=== PATIENT | female | born 1975 | race American Indian/Alaskan Native ===

== ENCOUNTER 2016-09-01 12:43 | Outpatient (CLI) | payer OTHER ==
--- NOTE | 2016-09-01 14:29 | Mammography Report ---
BILATERAL MAMMOGRAM: FINDINGS: The breasts are almost entirely fat (<25% glandular). No mass, distortion, suspicious calcification, or skin change is seen. There are no significant changes compared to her prior study in October 2014. CAD was utilized. IMPRESSION: Negative mammogram. There is no mammographic evidence of malignancy. RECOMMENDATION: Follow-up per ACS guidelines. BI-RADS CATEGORY: 1 = Negative ACR BI-RADS MAMMOGRAPHIC CODES: 0 = Needs additional imaging evaluation; 1 = Negative; 2 = Benign; 3 = Probably benign; 4 = Suspicious; 5 = Malignant; 6 = Known biopsy-proven malignancy COMMENT: 1. Dense breast tissue, i.e., adenosis, fibrocystic changes, etc., may obscure an underlying neoplasm. 2. Approximately 10% of cancers are not detected with mammography. 3. A negative mammography report should not delay biopsy if a clinically suspicious mass is present. COMMENT: Patient follow-up letters are generated in [employer].
== END 2016-09-01 12:44 | disposition home or self-care (01) ==
LOC: MAMMO 12:43
PROVIDERS: ATTEND Family Medicine
DX: Z12.31 Encounter for screening mammogram for malignant neoplasm of breast (principal)
CPT/HCPCS: 77067; G0202

== ENCOUNTER 2020-02-08 11:23 | Outpatient (CLI) | payer OTHER ==
--- NOTE | 2020-02-08 14:23 | Mammography Report ---
DIGITAL SCREENING MAMMOGRAM WITH CAD, 02/08/2020 INDICATION: Routine screening mammography. breasts pitted hard lump TECHNIQUE: Digital bilateral 2D mammography was obtained in the craniocaudal and mediolateral obliq ue projections. This examination was interpreted with the benefit of Computer-Aided Detection analysi s. COMPARISON: 09/01/2016 FINDINGS: Breast Density: The breasts are heterogeneously dense, which may obscure small masses. There is no evidence of dominant mass, suspicious calcifications or architectural distortion in eithe r breast. However, both breasts now show diffuse edema and marked diffuse skin thickening. This is mi ldly more prominent on the right than left. I do not see a discrete focal lesion. IMPRESSION: Prominent bilateral breast edema and skin thickening is now seen. Differential diagnosis would include bilateral infectious process, bilateral inflammatory carcinoma, or nonbreast systemic p rocesses such as congestive heart failure, venous obstruction, nephrotic syndrome, and connective tis belinda disease. I would favor a systemic process rather than breast disease given the bilateral diffuse nature. Follow up recommendation: Clinical assessment for the skin thickening and edema is needed. Bilateral inflammatory breast cancer is not completely excluded though would be rare and should be considered c linically but recommend evaluation for a systemic edematous process. If no obvious explanation is fou nd to account for this edema, MR might be useful. BI-RADS Category 2: Benign. A "normal" or negative report should not discourage follow up or biopsy of a clinically significant f inding. A written summary of these findings will be mailed to the patient. The patient will be entered into a mammography reporting system which will generate a reminder letter for the patient's next appointmen t at the appropriate interval. [employer] recommends yearly mammograms starting at age 40 and continuing as l tam as a woman is in good health. Breast MRI is recommended for women with an approximate 20-25% or greater lifetime risk of breast cancer, including women with a strong family history of breast or ova juany cancer or who have been treated for Hodgkin's disease. Signer Name: Oscar Cortes MD Signed: 02/08/2020 2:19 PM Workstation Name: [id number]
== END 2020-02-08 11:24 | disposition home or self-care (01) ==
LOC: MAMMO 11:23
PROVIDERS: ATTEND Family Medicine
DX: R92.8 Other abnormal and inconclusive findings on diagnostic imaging of breast (principal)
CPT/HCPCS: 77066